=== PATIENT | male | born 1970 | race Caucasian/White ===

== ENCOUNTER 2020-04-10 10:46 | Emergency (ER) | payer SELFPAY ==
[~2020-04-10] VITALS: Ht 190.5 cm; Wt 97.7 kg
[~2020-04-10 10:46] MED LIST: AMOXICILLIN875 MG PO; NORCO 325 MG-51 TAB PO; ULTRAM50 M1 PO; VIBRAMYCIN100 MG PO
[2020-04-10 11:32] LABS: EOS # 0.3 (0.04-0.40); HEMATOCRIT 49.2 % (42.0-52.0); HEMOGLOBIN 16.2 g/dL (13.5-18.0); LYMPH# 1.9 (1.50-4.00); MEAN CELL VOLUME 91 fl (78-100); MEAN CORPUSCULAR HEMOGLOBIN 30 pg (27-31); MEAN CORPUSCULAR HGB CONC 33 g/dL (33-37); MONO # 0.5 (0.20-0.80); NEU # 4.5 (1.40-6.50); PLATELET COUNT 348 K/mm3 (130-400); WHITE BLOOD COUNT 7.2 K/mm3 (4.8-10.8)
[2020-04-10 11:39] LABS: ALBUMIN 4.3 g/dL (3.5-5.0); POTASSIUM 4.4 mmol/L (3.5-5.1); SODIUM 141 mmol/L (136-145)
[2020-04-10 11:40] LABS: CALCIUM 9.3 mg/dL (8.3-10.5)
[2020-04-10 11:41] LABS: GLUCOSE 90 mg/dL (75-110); TOTAL PROTEIN 7.2 g/dL (6.4-8.3)
[2020-04-10 11:42] LABS: CARBON DIOXIDE 27 mmol/L (22-29)
[2020-04-10 11:43] LABS: TOTAL BILIRUBIN 0.4 mg/dL (0.2-1.2)
[2020-04-10 11:47] LABS: AST-SGOT 17 U/L (5-34)
[2020-04-10 11:48] LABS: ALT/SGPT 17 U/L (0-55)
[2020-04-10 12:19] LABS: TROPONIN-I < 0.03 ng/mL (<0.030)
[2020-04-10 12:27] LABS: D-DIMER 0.12 mg/L FEU (0.15-0.50)
[2020-04-10 13:37] VITALS: BP 116/86
== END 2020-04-10 13:10 | disposition home or self-care (01) ==
LOC: ED 10:46
PROVIDERS: Physician Assistant
DX: R07.89 Other chest pain (principal)

== ENCOUNTER 2020-09-10 17:45 | Emergency (ER) | payer BC ==
[2020-09-10 18:00] VITALS: BP 107/73
[2021-02-10] MEDS ORDERED: ACETAMINOPHEN-H1 TA2 PO (08:49)
== END 2020-09-10 18:32 | disposition left against medical advice (07) ==
LOC: ED 17:45
DX: R05 Cough (principal)

== ENCOUNTER 2020-09-11 11:37 | Emergency (ER) | payer BC ==
[2020-09-11 11:56] VITALS: BP 120/93
[2020-09-11 12:05] LABS: BASO # 0.01 (0.02-0.10); EOS # 0.02 (0.04-0.40); EOS % 0.1 % (0.0-4.0); HEMATOCRIT 46.8 % (42.0-52.0); HEMOGLOBIN 16.2 g/dL (13.5-18.0); MEAN CELL VOLUME 88 fl (78-100); MEAN CORPUSCULAR HEMOGLOBIN 31 pg (27-31); MEAN CORPUSCULAR HGB CONC 35 g/dL (33-37); MEAN PLATELET VOLUME 8.7 fl (7.4-10.4); MONO # 0.27 (0.20-0.80); NEU # 17.65 (1.40-6.50); PLATELET COUNT 462 K/mm3 (130-400); RED BLOOD COUNT 5.31 M/mm3 (4.20-5.60); RED CELL DISTRIBUTION WIDTH 13.3 % (11.5-14.5); WHITE BLOOD COUNT 18.8 K/mm3 (4.8-10.8)
[2020-09-11 12:35] LABS: ALBUMIN 4.1 g/dL (3.5-5.0); POTASSIUM 3.8 mmol/L (3.5-5.1); SODIUM 135 mmol/L (136-145)
[2020-09-11 12:36] LABS: CALCIUM 10.1 mg/dL (8.3-10.5)
[2020-09-11 12:38] LABS: GLUCOSE 119 mg/dL (75-110)
[2020-09-11 12:39] LABS: CARBON DIOXIDE 19 mmol/L (22-29); TOTAL BILIRUBIN 0.8 mg/dL (0.2-1.2)
[2020-09-11 12:43] LABS: AST-SGOT 27 U/L (5-34)
[2020-09-11 12:45] LABS: ACETAMINOPHEN 10 ug/mL; ALT/SGPT 9 U/L (0-55)
[2020-09-11 12:52] LABS: ALCOHOL IN-HOUSE < 10 mg/dL (<10)
[2020-09-11 14:22] LABS: D-DIMER 0.86 mg/L FEU (0.15-0.50)
[2021-02-10] MEDS ORDERED: ACETAMINOPHEN-H1 TA2 PO (08:49)
== END 2020-09-11 15:23 | disposition left against medical advice (07) ==
LOC: ED 11:37
PROVIDERS: Physician Assistant
DX: J18.9 Pneumonia, unspecified organism (principal); D72.829 Elevated white blood cell count, unspecified; R45.1 Restlessness and agitation; Z20.822 Contact with and (suspected) exposure to COVID-19
CPT/HCPCS: J2060; J7030; Q9967

== ENCOUNTER → 2021-02-10 | Day surgery (SDC) | payer BC ==
[~2021-02-10] MED LIST changes: +ACETAMINOPHEN-H1 TA2 PO
== END ==
LOC: MSO 07:12
DX: L05.91 Pilonidal cyst without abscess (principal); F41.9 Anxiety disorder, unspecified; F32.A Depression, unspecified; Z79.899 Other long term (current) drug therapy
CPT/HCPCS: J0690; J1100; J1885; J2405; J2704; J2710; J3010; J3490; J7120